=== PATIENT | male | born 1960 | race Caucasian/White ===

== ENCOUNTER 2023-02-23 08:23 | Outpatient (CLI) | payer OTHER, SELFPAY | END 2023-02-23 08:24 | disposition home or self-care (01) | PROVIDERS: PCP Nurse Practitioner Family; Visit Provider Nurse Practitioner Family | DX: Z00.00 Encounter for general adult medical examination without abnormal findings (principal); R63.4 Abnormal weight loss; E78.5 Hyperlipidemia, unspecified; I10 Essential (primary) hypertension; Z12.5 Encounter for screening for malignant neoplasm of prostate; Z13.0 Encounter for screening for diseases of the blood and blood-forming organs and certain disorders involving the immune mechanism | CPT/HCPCS: 80053; 80061; 84153; 85025 ==

== ENCOUNTER 2023-03-25 09:38 | Outpatient (CLI) | payer OTHER, SELFPAY ==
--- NOTE | 2023-03-25 10:00 | CRLHL7_ITS ---
For Patients: As a result of the Century Cures Act, medical imaging exams and procedure reports are released immediately into your electronic medical record. You may view this report before your referring provider. If you have questions, please contact your health care provider. INDICATION: Lung cancer screening. History of smoking. High risk patient with greater than 40 pack-year smoking history. TECHNIQUE: Low-dose lung cancer screening non-contrast CT chest. Dose reduction techniques were used. COMPARISON: None. FINDINGS: NODULES: None. LUNGS AND PLEURA: Clear. MEDIASTINUM: No adenopathy is present. CORONARY ARTERY CALCIFICATION: Severe. LIMITED UPPER ABDOMEN: Atherosclerotic changes are present. MUSCULOSKELETAL: Degenerative changes. No fracture. IMPRESSION: Negative for lung cancer screening purposes. LUNG-RADS CATEGORY: 1: Negative. RADIOLOGIST RECOMMENDATION: Continue annual screening with low-dose CT chest in 12 months. Please note that all CT scans at this facility use dose modulation, iterative reconstruction, and/or weight-based dosing when appropriate to reduce radiation dose to as low as reasonably achievable. Dictated by Juve Nolen MD @ 03/25/2023 12:00:12 PM (Electronically Signed)
== END 2023-03-25 09:39 | disposition home or self-care (01) ==
LOC: CT 09:40
PROVIDERS: PCP Nurse Practitioner Family; Visit Provider Nurse Practitioner Family
DX: Z12.2 Encounter for screening for malignant neoplasm of respiratory organs (principal); F17.200 Nicotine dependence, unspecified, uncomplicated
CPT/HCPCS: 71271

== ENCOUNTER 2023-05-10 08:13 | Outpatient (CLI) | payer OTHER, SELFPAY ==
--- NOTE | 2023-05-10 09:10 | W.ANESCHARGE ---
Anesthesia Charges Start Date/Time Anesthesia Start Date: 05/10/23 Anesthesia Start Time: 08:40 Stop Date/Time Anesthesia Stop Date: 05/10/23 Anesthesia Stop Time: 09:07
--- NOTE | 2023-05-10 11:51 | W.ANESCHARGE ---
Anesthesia Charges Start Date/Time Anesthesia Start Date: 05/10/23 Anesthesia Start Time: 08:40 Stop Date/Time Anesthesia Stop Date: 05/10/23 Anesthesia Stop Time: 09:07
== END 2023-05-10 08:14 | disposition home or self-care (01) ==
LOC: OP CLINIC 08:14
PROVIDERS: PCP Nurse Practitioner Family; Visit Provider Internal Medicine
DX: Z12.11 Encounter for screening for malignant neoplasm of colon (principal); K63.5 Polyp of colon; K57.30 Diverticulosis of large intestine without perforation or abscess without bleeding
CPT/HCPCS: 00811; 45380; 88305; J2704

== ENCOUNTER 2024-03-07 14:24 | Outpatient (CLI) | payer OTHER, SELFPAY ==
[2024-03-07 23:10] LABS: PCR FLU A Negative PCR FLU A (Negative); PCR FLU B Negative PCR FLU B (Negative); PCR RSV Negative PCR RSV (Negative); SARS PCR* Negative SARS-CoV-2 (Negative)
== END 2024-03-07 14:25 | disposition home or self-care (01) ==
PROVIDERS: PCP Nurse Practitioner Family; Visit Provider Nurse Practitioner Family
DX: R09.89 Other specified symptoms and signs involving the circulatory and respiratory systems (principal); J11.1 Influenza due to unidentified influenza virus with other respiratory manifestations
CPT/HCPCS: 83880; 85025; 87631

== ENCOUNTER 2024-03-10 09:20 | Outpatient (CLI) | payer OTHER, SELFPAY | END 2024-03-10 09:21 | disposition home or self-care (01) | PROVIDERS: PCP Nurse Practitioner Family; Visit Provider Nurse Practitioner Family | DX: J18.9 Pneumonia, unspecified organism (principal) | CPT/HCPCS: 85025 ==

== ENCOUNTER 2024-03-14 15:04 | Outpatient (CLI) | payer OTHER, SELFPAY | END 2024-03-14 15:05 | disposition home or self-care (01) | LOC: KYNREF 15:06 | PROVIDERS: PCP Nurse Practitioner Family; Visit Provider Nurse Practitioner Family | DX: R50.9 Fever, unspecified (principal); J18.9 Pneumonia, unspecified organism | CPT/HCPCS: 85025 ==

== ENCOUNTER 2024-03-17 12:38 | Outpatient (CLI) | payer OTHER, SELFPAY | END 2024-03-17 12:39 | disposition home or self-care (01) | PROVIDERS: PCP Nurse Practitioner Family; Visit Provider Nurse Practitioner Family | DX: R94.2 Abnormal results of pulmonary function studies (principal); I70.0 Atherosclerosis of aorta; I25.10 Atherosclerotic heart disease of native coronary artery without angina pectoris; D72.829 Elevated white blood cell count, unspecified | CPT/HCPCS: 71250; 84484; 85025 ==

== ENCOUNTER 2024-04-11 10:05 | Outpatient (CLI) | payer OTHER, SELFPAY | END 2024-04-11 10:06 | disposition home or self-care (01) | LOC: NFLDREF 04-13 12:02 | PROVIDERS: PCP Nurse Practitioner Family; Referring Provider Nurse Practitioner Family; Visit Provider Nurse Practitioner Family | DX: D72.829 Elevated white blood cell count, unspecified (principal) | CPT/HCPCS: 85025 ==